=== PATIENT | female | born 1965 | race Caucasian/White ===

== ENCOUNTER 2017-06-15 10:56 | Emergency (ER) | payer MEDICAID ==
[~2017-06-15] VITALS: Ht 152.4 cm; Wt 44.0 kg
[2017-06-15 11:03] VITALS: Ht 152.4 cm; Wt 44.0 kg
[2017-06-15] MEDS ORDERED: ACETAMINOPHEN 325 MG TAB PO ONE (12:00)
--- NOTE | 2017-06-15 12:41 | RADRPT ---
PROCEDURE: CT Brain without contrast. CLINICAL INDICATION: Trauma 3 weeks ago. TECHNIQUE: CT scan of the brain was performed on a multidetector high-resolution CT scan. Axial im aging was obtained of the brain without contrast administration. Coronal and sagittal reformatted i mages were obtained from the axial source images. Standard CT scan of the head without contrast prot ocols were performed. The total exam CTDI equals 44.84 mGy and the total exam DLP equals 720.23 mGy-cm. One or more of the following dose reduction techniques were used: - Automated exposure control. - Adjustment of the mA and/or kV according to patient size. Use of iterative reconstruction technique. COMPARISON: None. FINDINGS: The ventricular system and peripheral CSF spaces are unremarkable. Negative for intracranial masses hemorrhages or midline shift. The lindquist-white matter junction is unremarkable. There are punctate britany cifications in the left frontal, left parietal and left occipital lobes consistent with previous inf lammatory disease such as cysticercosis. The bones of the calvarium are intact. The visualized paran live sinuses and mastoids are unremarkable. IMPRESSION: 1. No evidence of intracranial masses hemorrhages or midline shift. 2. Left temporal, parietal and occipital lobe calcifications consistent with previous inflammatory disease such as cysticercosis. RPTAT:AAJJ Physician Renny Date Time Electronically viewed and signed by Physician Renny on 06/15/2017 12:41 BM/
--- NOTE | 2017-06-15 12:46 | RADRPT ---
PROCEDURE: CT cervical spine without contrast. CLINICAL INDICATION: TRAUMA TECHNIQUE: Axial imaging was obtained through the cervical spine using a multi-slice CT scanner. [facility] spine without contrast protocols were performed. CTDI: 22.07 and DLP: 408.1. One or more of the following dose reduction techniques were used: - Automated exposure control. - Adjustment of the mA and/or kV according to patient size. Use of iterative reconstruction technique. COMPARISON: None. FINDINGS: There is reversal of the normal cervical lordosis. There is no evidence of acute fractures or sublux ations. The bony mineralization is normal. No focal bony blastic or lytic lesions. The posterior yoselyn ments are intact. Minimal degenerative enthesopathy involving the anterior inferior C5 vertebral bod y. There is mild degenerate disc bulges of the C4-5 C5-6 and C6-7 disc levels. No disc herniations. No evidence of central spinal canal stenosis or neural foraminal narrowing. No paraspinous masses. T here is no evidence of prevertebral soft tissue swelling. Mild bilateral apical parenchymal and pleu ral scarring. Those portions of the airway visualized are unremarkable. IMPRESSION: 1. No evidence acute fractures subluxations or stenosis. 2. Degenerative changes as above. RPTAT:AAJJ Physician Renny Date Time Electronically viewed and signed by Physician Renny on 06/15/2017 12:46 BM/
--- NOTE | 2017-06-15 12:46 | RADRPT ---
PROCEDURE: CT cervical spine without contrast. CLINICAL INDICATION: TRAUMA TECHNIQUE: Axial imaging was obtained through the cervical spine using a [facility] spine without contrast protocols were performed. CTDI: 22.07 and DLP: 408.1. One or more of the following dose reduction techniques were used: - Automated exposure control. - Adjustment of the mA and/or kV according to patient size. Use of iterative reconstruction technique. COMPARISON: None. FINDINGS: There is reversal of the normal cervical lordosis. There is no evidence of acute fractures or sublux ations. The bony mineralization is normal. No focal bony blastic or lytic lesions. The posterior yoselyn ments are intact. Minimal degenerative enthesopathy involving the anterior inferior C5 vertebral bod y. There is mild degenerate disc bulges of the C4-5 C5-6 and C6-7 disc levels. No disc herniations. No evidence of central spinal canal stenosis or neural foraminal narrowing. No paraspinous masses. T here is no evidence of prevertebral soft tissue swelling. Mild bilateral apical parenchymal and pleu ral scarring. Those portions of the airway visualized are unremarkable. IMPRESSION: 1. No evidence acute fractures subluxations or stenosis. 2. Degenerative changes as above. RPTAT:AAJJ Physician Renny Date Time Electronically viewed and signed by Physician Renny on 06/15/2017 12:46 BM/
[2017-06-15] MEDS ORDERED: IBUP400T22 PO (12:56)
[2017-06-15] MEDS ORDERED: TRAM50TA2 PO (12:56)
[2017-06-15] MEDS ORDERED: ONDA8TAB14 PO (12:59)
--- NOTE | 2017-06-15 12:59 | ERD ---
ER Documentation Chief Complaint Chief Complaint Complains of headache and nausea x 2 weeks HPI This 52-year-old female presents with neck pain and headache for last 2 weeks. History significant for falling off the couch and hitting her neck area and a playpen. She has some vomiting over the last day nonbilious nonbloody. States that the nausea was due to her headache. She denies urinary complaints. She denies abdominal pain.. She has a double vision, fevers, weakness, bowel bladder incontinence, chest pain or shortness of breath. ROS All systems reviewed and are negative except as per history of present illness. Medications Home Meds Active Scripts Ondansetron (Ondansetron Odt) 8 Mg Tab.rapdis, 8 MG PO Q6H Y for NAUSEA AND/OR VOMITING, #6 TAB Prov:KEVIN YUSUF MD 06/15/17 Tramadol HCl (Tramadol HCl) 50 Mg Tablet, 50 MG PO Q4 Y for PAIN, #15 TAB Prov:KEVIN YUSUF MD 06/15/17 Ibuprofen* (Motrin*) 400 Mg Tab, 400 MG PO Q6, #20 TAB Prov:KEVIN YUSUF MD 06/15/17 Allergies Allergies: Coded Allergies: No Known Allergy (Unverified , 06/15/17) PMhx/Soc Medical and Surgical Hx: pt denies Medical Hx, pt denies Surgical Hx Hx Alcohol Use: No Hx Substance Use: No Hx Tobacco Use: No Smoking Status: Never smoker Physical Exam Vitals Vital Signs Date Time Temp Pulse Resp B/P Pulse Ox O2 Delivery O2 Flow Rate FiO2 06/15/17 11:03 98.5 100 20 144/91 98 Physical Exam Const: [] Alert, [id number]. Head: Atraumatic Eyes: Normal Conjunctiva ENT: Normal External Ears, Nose and Mouth. Neck: Full range of motion..~ No meningismus. Generalized tenderness in the right cervical paraspinous muscles without appreciable midline tenderness or deformities. No crepitance. Resp: Clear to auscultation bilaterally Cardio: Regular rate and rhythm, no murmurs Abd: Soft, non tender, non distended. Normal bowel sounds Skin: No petechiae or rashes Back: No midline or flank tenderness Ext: No cyanosis, or edema Neur: Awake and alert Psych: Normal Mood and Affect Results 24 hrs Current Medications Medications (Trade) Dose Ordered Sig/Eitan Route PRN Reason Start Time Stop Time Status Last Admin Dose Admin Acetaminophen (Tylenol Tab) 650 mg ONCE ONCE PO 06/15/17 12:00 06/15/17 12:01 DC 06/15/17 11:57 Procedures/MDM Given the uncertain cause of symptoms after trauma for [address] brain and cervical spine was performed shows no acute abnormalities. Patient likely has cervical strain. She also has vomiting of uncertain etiology without evidence of abdominal pain, obstruction, additional emergent causes. She will be treated with tramadol, Zofran, ibuprofen, observation at home, return precautions and primary care follow-up. The patient was stable with no new complaints during the ER course. Clinically, there is no current evidence to suggest meningitis, sepsis, acute abdomen, pneumonia, acute coronary syndrome, pulmonary embolism, or any other emergent condition appearing to require further evaluation or hospitalization. The patient should certainly return for any new or worsening symptoms per the aftercare instructions. They should otherwise follow-up with her primary care doctor for reevaluation this week. Departure Diagnosis: Primary Impression: Injury of neck Encounter type: initial encounter Qualified Code: S19.9XXA - Injury of neck , initial encounter Additional Impression: Headache Headache type: unspecified Headache chronicity pattern: unspecified pattern Intractability: not intractable Qualified Code: R51 - Nonintractable headache, unspecified chronicity pattern, unspecified headache type Condition: Stable Patient Instructions: HEAD INJURY, No Wake-Up (Adult), Neck Sprain/Strain Additional Instructions: Examines normal hoy. probablamente musculos. Cheque otro vez con oleary doctor primario en el proximo [place] or regresa para mas o nueva simptomas. KEVIN YUSUF MD Jun 15, 2017 12:59
[2017-06-15 13:04] VITALS: BP 132/77; PULSE 74; RESP 19; TEMP 98.2
== END 2017-06-15 13:09 | disposition home or self-care (01) ==
LOC: FTE 10:56
DX: S19.9XXA Unspecified injury of neck, initial encounter (principal); R51 Headache; R11.0 Nausea; W08.XXXA Fall from other furniture, initial encounter; Y92.9 Unspecified place or not applicable
CPT/HCPCS: 70450; 72125; Z7502; Z7610

== ENCOUNTER 2019-05-09 15:59 | Emergency (ER) | payer MEDICAID ==
[~2019-05-09] VITALS: Ht 152.4 cm; Wt 47.9 kg
[~2019-05-09 15:59] MED LIST: CEPH-443 PO; IBUP-1561 PO; ONDA8TAB14 PO; PHEN-538 PO; TRAM50TA2 PO
[2019-05-09 16:25] VITALS: Ht 152.4 cm; Wt 47.9 kg
[2019-05-09] MEDS ORDERED: CEPHALEXIN 500 MG CAP PO ONE (19:00)
[2019-05-09] MEDS ORDERED: PHENAZOPYRIDINE 100 MG TAB PO ONE (19:00)
[2019-05-09 19:07] VITALS: BP 160/88; PULSE 77; RESP 20
== END 2019-05-09 19:08 | disposition home or self-care (01) ==
LOC: FTE 15:59
DX: R30.0 Dysuria (principal)
CPT/HCPCS: 81003; 81025; Z7502; Z7610; 99283